=== PATIENT | female | born 1995 | race Caucasian/White ===

== ENCOUNTER 2023-02-23 13:36 | Inpatient (IN) | payer OTHER ==
[~2023-02-23] VITALS: Ht 170.2 cm; Wt 104.5 kg
[2023-02-23 15:35] LABS: BASOPHILS % (AUTO) 0.1 % (0.0-2.0); EOSINOPHILS % (AUTO) 0.1 % (1.0-6.0); HEMATOCRIT 38.8 % (36-46); LYMPHOCYTES # (AUTO) 0.4 K/uL (1.0-4.8); LYMPHOCYTES % (AUTO) 3.1 % (22.0-44.0); MEAN CORPUSCULAR HEMOGLOBIN 29.2 pg (26.0-34.0); MEAN CORPUSCULAR HGB CONC 33.6 G/dL (31.0-37.0); MEAN CORPUSCULAR VOLUME 87 fL (80-100); MONOCYTES # (AUTO) 0.7 K/uL (0.1-1.0); MONOCYTES % (AUTO) 5.6 % (2.0-9.0); NEUTROPHILS # (AUTO) 11.3 K/uL (1.8-7.7); PLATELET COUNT (AUTO) 220 K/uL (150-450); RED BLOOD CELL COUNT(AUTO) 4.45 MIL/uL (4.00-5.20); RED CELL DISTRIBUTION WIDTH 12.2 % (11.5-14.5)
[2023-02-23 15:37] LABS: NEUTROPHILS % (AUTO) 91.1 % (40.0-70.0)
[2023-02-23 15:44] LABS: ANION GAP 9 mmol/L (8-16); CARBON DIOXIDE 26 mmol/L (22-29); CHLORIDE 104 mmol/L (98-107); CREATININE 0.56 mg/dL (0.60-1.30); GLOMERULAR FILTR. RATE CALC > 60 mL/min (>60); GLUCOSE,RANDOM 112 mg/dL (70-110); POTASSIUM 3.9 mmol/L (3.5-5.1); SODIUM SERUM 139 mmol/L (136-145)
[2023-02-23 15:57] LABS: ALANINE AMINOTRANSFERASE 223 U/L (12-78); ALBUMIN 3.8 g/dL (3.4-5.0); ALKALINE PHOSPHATASE 82 U/L (46-116); ASPARTATE AMINOTRANSFERASE 113 U/L (15-37); BILIRUBIN,TOTAL 6.8 mg/dL (0.1-1.0); HCG,QUANTITATIVE < 1 mIU/mL (0-6); TOTAL PROTEIN, SERUM 7.2 g/dL (6.4-8.2)
[2023-02-23 16:26] LABS: LIPASE 12224 U/L (73-393)
[2023-02-23] MEDS ORDERED: MORPHINE SULFATE 2 MG/ML SYRINGE IVP PRN (16:45)
[2023-02-23] MEDS ORDERED: ONDANSETRON HCL 4 MG/2 ML VIAL IVP PRN (16:45)
[2023-02-23] MEDS: SODIUM CHLORIDE 0.9% 1,000 ML IV SCH ×2 (16:59→22:09)
[2023-02-23] MEDS ORDERED: PIPERACILLIN/TAZO 3.375 GM/D5W 50 ML IV ONE (18:45)
[2023-02-23] MEDS: ACETAMINOPHEN 325 MG TABLET PO PRN (18:55)
[2023-02-23] MEDS: DOCUSATE SODIUM 100 MG CAPSULE PO SCH (20:21)
[2023-02-23 22:05] VITALS: BP 123/74; PULSE 88; RESP 18; TEMP 98.5
[2023-02-24 04:29] VITALS: BP 115/66; PULSE 88; RESP 18; TEMP 98.4
[2023-02-24 07:14] LABS: ALANINE AMINOTRANSFERASE 173 U/L (12-78); ALBUMIN 3.4 g/dL (3.4-5.0); ALKALINE PHOSPHATASE 84 U/L (46-116); ANION GAP 13 mmol/L (8-16); ASPARTATE AMINOTRANSFERASE 61 U/L (15-37); BILIRUBIN,TOTAL 1.6 mg/dL (0.1-1.0); CALCIUM, TOTAL 8.3 mg/dL (8.8-10.5); CARBON DIOXIDE 21 mmol/L (22-29); CHLORIDE 103 mmol/L (98-107); CREATININE 0.49 mg/dL (0.60-1.30); GLOMERULAR FILTR. RATE CALC > 60 mL/min (>60); GLUCOSE,RANDOM 71 mg/dL (70-110); POTASSIUM 3.4 mmol/L (3.5-5.1); SODIUM SERUM 137 mmol/L (136-145); TOTAL PROTEIN, SERUM 6.8 g/dL (6.4-8.2)
[2023-02-24 07:48] LABS: LIPASE 5021 U/L (73-393)
[2023-02-24 08:00] VITALS: BP 122/72; PULSE 100; RESP 20; TEMP 98.8
[2023-02-24] MEDS ORDERED: POTASSIUM CHL 10 MEQ/WATER 50 ML IV PRN (08:15)
[2023-02-24] MEDS ORDERED: POTASSIUM CHLORIDE 20 MEQ ER TABLET PO PRN (08:15)
[2023-02-24 08:24] LABS: APPEARANCE,URINE HAZY (CLEAR); GLUCOSE, URINE (UA) NEGATIVE (NEGATIVE); KETONES,URINE =>150 mg/dL (NEGATIVE); LEUKOCYTE ESTERASE ,URINE MODERATE (NEGATIVE); NITRATE,URINE NEGATIVE (NEGATIVE); OCCULT BLOOD,URINE NEGATIVE (NEGATIVE); PROTEIN,URINE 30-70 mg/dL (NEGATIVE); SPECIFIC GRAVITIY, URINE 1.036 (1.003-1.030); UROBILINOGEN,URINE <=1.0 mg/dL (<=1.0)
[2023-02-24 08:28] LABS: BILIRUBIN,URINE SMALL (NEGATIVE)
[2023-02-24 08:37] LABS: BACTERIA,URINE Few /HPF (None Seen); SQUAMOUS EPITHELIAL CELL,UR Moderate /LPF (None Seen)
[2023-02-24] MEDS: PANTOPRAZOLE SODIUM 40 MG/VIAL IVP SCH (08:49)
[2023-02-24] MEDS: DOCUSATE SODIUM 100 MG CAPSULE PO SCH ×2 (08:49→20:11)
[2023-02-24] MEDS: SODIUM CHLORIDE 0.9% 1,000 ML IV SCH ×2 (08:53→21:13)
[2023-02-24 11:59] LABS: BASOPHILS % (AUTO) 0.6 % (0.0-2.0); EOSINOPHILS % (AUTO) 0.2 % (1.0-6.0); HEMATOCRIT 36.5 % (36-46); HEMOGLOBIN 12.2 g/dL (12.0-16.0); LYMPHOCYTES # (AUTO) 0.9 K/uL (1.0-4.8); LYMPHOCYTES % (AUTO) 10.5 % (22.0-44.0); MEAN CORPUSCULAR HEMOGLOBIN 29.4 pg (26.0-34.0); MEAN CORPUSCULAR HGB CONC 33.3 G/dL (31.0-37.0); MEAN CORPUSCULAR VOLUME 88 fL (80-100); MONOCYTES # (AUTO) 0.6 K/uL (0.1-1.0); MONOCYTES % (AUTO) 7.3 % (2.0-9.0); NEUTROPHILS # (AUTO) 7.1 K/uL (1.8-7.7); NEUTROPHILS % (AUTO) 81.4 % (40.0-70.0); PLATELET COUNT (AUTO) 204 K/uL (150-450); RED BLOOD CELL COUNT(AUTO) 4.13 MIL/uL (4.00-5.20); RED CELL DISTRIBUTION WIDTH 12.5 % (11.5-14.5)
[2023-02-24 12:00] VITALS: BP 121/80; PULSE 108; RESP 20; TEMP 99.2
[2023-02-24 12:22] LABS: COVID AG,FIA SOURCE NASAL SWAB
[2023-02-24 20:40] VITALS: BP 119/72; PULSE 105; RESP 19; TEMP 100.3
[2023-02-24] MEDS: ACETAMINOPHEN 325 MG TABLET PO PRN (21:13)
[2023-02-25 04:15] VITALS: BP 110/58; PULSE 98; RESP 20; TEMP 98.8
[2023-02-25 08:07] VITALS: BP 132/78; PULSE 71; RESP 15; TEMP 98.2
[2023-02-25] MEDS: DOCUSATE SODIUM 100 MG CAPSULE PO SCH ×2 (08:07→20:53)
[2023-02-25] MEDS: PANTOPRAZOLE SODIUM 40 MG/VIAL IVP SCH (08:08)
[2023-02-25] MEDS: SODIUM CHLORIDE 0.9% 1,000 ML IV SCH (08:08)
[2023-02-25] MEDS: ACETAMINOPHEN 325 MG TABLET PO PRN (08:24)
[2023-02-25] MEDS ORDERED: CefTRIAXone 1 GM/DEXTROSE 50 ML IV SCH (10:15)
[2023-02-25] MEDS ORDERED: METOPROLOL TARTRATE 5 MG/5 ML VIAL IVP ONE (12:00)
[2023-02-25] MEDS ORDERED: 0.9% SODIUM CHLORIDE 10 ML VIAL IVP ONE (12:00)
[2023-02-25] MEDS ORDERED: ROCURONIUM BROMIDE 10 MG/ML 5 ML VIAL IVP ONE (12:00)
[2023-02-25] MEDS ORDERED: MORPHINE SULFATE 4 MG/ML SYRINGE IVP ONE (12:00)
[2023-02-25] MEDS ORDERED: LIDOCAINE/PF 2% 5 ML VIAL IM ONE (12:00)
[2023-02-25] MEDS ORDERED: DEXAMETHASONE SOD PHOS 4 MG/ML VIAL IVP ONE (12:00)
[2023-02-25] MEDS ORDERED: SUGAMMADEX SODIUM 200 MG/2 ML VIAL IVP ONE (12:00)
[2023-02-25] MEDS ORDERED: ONDANSETRON HCL 4 MG/2 ML VIAL IVP ONE (12:00)
[2023-02-25] MEDS ORDERED: MIDAZOLAM HCL 2 MG/2 ML VIAL IVP ONE (12:00)
[2023-02-25] MEDS ORDERED: KETOROLAC TROMETHAMINE 60 MG/2 ML VIAL IM ONE (12:00)
[2023-02-25] MEDS ORDERED: PROPOFOL 1% 20 ML VIAL IVP ONE (12:00)
[2023-02-25] MEDS ORDERED: MORPHINE SULFATE/PF 0.5 MG/ML 10 ML AMP IVP ONE (12:00)
[2023-02-25] MEDS ORDERED: FentaNYL CITRATE PF 100 MCG/2 ML VIAL IVP ONE (12:00)
[2023-02-25] MEDS ORDERED: SODIUM CHLORIDE 0.9% 1,000 ML ONE ×3 (14:41→18:21)
[2023-02-25] MEDS ORDERED: BUPIVACAINE 0.25%/EPI 1:200,000/PF 10 ML VIAL ONE (15:56)
[2023-02-25] MEDS ORDERED: MEPERIDINE-PF 25 MG/ML VIAL IVP PRN (17:15)
[2023-02-25] MEDS ORDERED: HYDROmorphone HCL 2 MG/ML SYRINGE IVP PRN (17:15)
[2023-02-25] MEDS ORDERED: FentaNYL CITRATE PF 100 MCG/2 ML VIAL IVP PRN (17:15)
[2023-02-25] MEDS ORDERED: IOHEXOL 240 MG/ML 20 ML VIAL ONE (17:24)
[2023-02-25] MEDS ORDERED: OxyCODONE HCL 5 MG IR TABLET PO PRN (18:45)
[2023-02-25] MEDS: OXYGEN THERAPY IH SCH (20:00)
[2023-02-25 20:04] VITALS: BP 110/58; PULSE 90; RESP 18; TEMP 98.8
[2023-02-25] MEDS: IBUPROFEN 600 MG TABLET PO SCH (20:53)
[2023-02-25] MEDS: ACETAMINOPHEN 500 MG TABLET PO SCH (20:53)
[2023-02-26 04:14] VITALS: BP 126/70; PULSE 76; RESP 20; TEMP 97.6
[2023-02-26 07:03] LABS: ALANINE AMINOTRANSFERASE 84 U/L (12-78); ALBUMIN 3.2 g/dL (3.4-5.0); ALKALINE PHOSPHATASE 75 U/L (46-116); ANION GAP 11 mmol/L (8-16); ASPARTATE AMINOTRANSFERASE 19 U/L (15-37); BILIRUBIN,TOTAL 0.8 mg/dL (0.1-1.0); CALCIUM, TOTAL 8.7 mg/dL (8.8-10.5); CARBON DIOXIDE 24 mmol/L (22-29); CHLORIDE 101 mmol/L (98-107); CREATININE 0.42 mg/dL (0.60-1.30); GLOMERULAR FILTR. RATE CALC > 60 mL/min (>60); GLUCOSE,RANDOM 124 mg/dL (70-110); POTASSIUM 3.7 mmol/L (3.5-5.1); SODIUM SERUM 136 mmol/L (136-145); TOTAL PROTEIN, SERUM 7.2 g/dL (6.4-8.2)
[2023-02-26 07:06] LABS: HEPATITIS C AB (EIA) Non Reactive (Non Reactive)
[2023-02-26] MEDS: OXYGEN THERAPY IH SCH (07:22)
[2023-02-26 08:03] VITALS: BP 122/74; PULSE 78; RESP 20; TEMP 98
[2023-02-26] MEDS: PANTOPRAZOLE SODIUM 40 MG/VIAL IVP SCH (08:04)
[2023-02-26] MEDS: ACETAMINOPHEN 500 MG TABLET PO SCH (08:04)
[2023-02-26] MEDS: IBUPROFEN 600 MG TABLET PO SCH (08:04)
[2023-02-26] MEDS: DOCUSATE SODIUM 100 MG CAPSULE PO SCH (08:04)
== END 2023-02-26 14:10 | disposition home or self-care (01) | DRG 417 ==
LOC: EMS 13:38 → 6S 20:19
PROVIDERS: ADMIT Internal Medicine; ATTEND Internal Medicine
PROC: 0FT44ZZ Resection of Gallbladder, Percutaneous Endoscopic Approach (ICD-10-PCS; principal; 2023-02-25 17:00)
DX: K80.10 Calculus of gallbladder with chronic cholecystitis without obstruction (principal); K85.10 Biliary acute pancreatitis without necrosis or infection; N39.0 Urinary tract infection, site not specified; R65.10 Systemic inflammatory response syndrome (SIRS) of non-infectious origin without acute organ dysfunction; E87.6 Hypokalemia; Z20.822 Contact with and (suspected) exposure to COVID-19; R74.8 Abnormal levels of other serum enzymes; R74.01 Elevation of levels of liver transaminase levels; E66.9 Obesity, unspecified; Z68.36 Body mass index [BMI] 36.0-36.9, adult; Z88.2 Allergy status to sulfonamides
CPT/HCPCS: 74181; 76705; 80053; 81001; 83690; 84132; 84702; 85025; 86803; 87081; 87086; 87186; 87340; 99285; C9113; J0696; J2250; J2270; J2274; J2543; J3010; J3490; J7030; Q9966